=== PATIENT | male | born 1980 ===

== ENCOUNTER 2020-05-15 17:45 | Emergency (ER) | payer SELFPAY ==
--- NOTE | 2020-05-15 18:12 | EDM.PDOC ---
ED HPI GENERAL MEDICAL PROBLEM - General Chief Complaint: Trauma Stated Complaint: TRAUMA Time Seen by Provider: 05/15/20 17:45 Source of Information: Reports: Patient, EMS, Hand Stripper History Limitations: Reports: No Limitations - History of Present Illness INITIAL COMMENTS - FREE TEXT/NARRATIVE: Patient presents via ambulance after falling 12-15 feet from a [employer] roof where he was working. His co-worker is here who saw the incident and is interpreting for him. He says patient landed on knees and forearms and rolled to side on impact. He was curled up in a crouching position when he landed. He did not have LOC. Patient says he has some pain in lower mid chest that is worse with inspiration. He denies pain in neck, abdomen or extremities. He denies any vision change. He doesn't take any medications. - Related Data Allergies Allergy/AdvReac Type Severity Reaction Status Date / Time Penicillins Allergy dry throat Verified 05/15/20 18:32 Home Meds: Home Meds . [No Known Home Meds] 05/15/20 [History] Review of Systems - Review of Systems Review Of Systems: See Below Constitutional: Denies: Chills, Fever, Weakness Eyes: Denies: Blindness, Blurred Vision, Vision Change Ears: Denies: Pain, Bloody Discharge, Clear Discharge, Purulent Discharge, Serosanguinous Discharge Nose: Denies: Epistaxis, Pain, Bloody Discharge, Clear Discharge, Purulent Discharge, Serosanguinous Discharge Mouth/Throat: Denies: Bleeding, Lip Swelling, Tongue Swelling, Throat Swelling, Hoarse Voice, Muffled Voice, Difficulty Swallowing, Painful Swallowing Respiratory: Denies: Shortness of Breath, Wheezing, Cough, Hemoptysis Cardiovascular: Reports: Chest Pain (see HPI). Denies: Syncope GI/Abdominal: Denies: Abdominal Pain, Diarrhea, Nausea, Vomiting Musculoskeletal: Reports: Back Pain. Denies: Neck Pain, Shoulder Pain, Arm Pain, Hand Pain, Leg Pain, Foot Pain Skin: Denies: Cyanosis, Jaundice, Mottled, Pallor, Diaphoresis Neurological: Denies: Confusion, Dizziness, Headache, Seizure, Syncope, Trouble Speaking Psychiatric: Denies: Confusion, Anxiety, Agitation ED EXAM, GENERAL - Physical Exam Exam: See Below Exam Limited By: No Limitations (used aerial photograph interpreter) General Appearance: Alert, WD/WN, No Apparent Distress Eye Exam: Bilateral Eye: EOMI, Normal Inspection, PERRL Ears: Normal External Exam, Normal Canal, Hearing Grossly Normal, Normal TMs Nose: Normal Inspection, No Blood Throat/Mouth: Normal Inspection, Normal Lips, Normal Voice, No Airway Compromise Head: Atraumatic, Normocephalic Neck: Normal Inspection, Supple, Non-Tender, Full Range of Motion (examined carefully after removal of collar). No: Tender Lateral, Tender Midline Respiratory/Chest: No Respiratory Distress, Lungs Clear, Normal Breath Sounds, No Accessory Muscle Use, Other (tender in lower sternum). No: Crackles, Rales, Rhonchi, Wheezing, Stridor Cardiovascular: Regular Rate, Rhythm, No Edema, No Gallop, No Murmur Peripheral Pulses: 2+: Carotid (L), Carotid (R), Radial (L), Radial (R), Posterior Tibial (L), Posterior Tibial (R) GI/Abdominal: Normal Bowel Sounds, Soft, Non-Tender, No Organomegaly, No Distention, No Abnormal Bruit, No Mass, Pelvis Stable Back Exam: Paraspinal Tenderness (low lumbar), Vertebral Tenderness (low lumbar). No: CVA Tenderness (L), CVA Tenderness (R) Extremities: Normal Inspection, Normal Range of Motion, Non-Tender, No Pedal Edema, Other (thorough exam of bilat UE/LE reveals no pain or limitations. Distal CMS intact.) Neurological: Alert, Oriented, CN II-XII Intact, Normal Cognition, No Motor/Sensory Deficits Psychiatric: Normal Affect, Normal Mood Skin Exam: Warm, Dry, Intact, Normal Color, No Rash Course - Vital Signs Last Recorded V/S: Last Vital Signs Temp 97.1 F 05/15/20 18:35 Pulse 78 05/15/20 18:49 Resp 22 H 05/15/20 18:49 BP 146/66 H 05/15/20 18:49 Pulse Ox 97 05/15/20 18:49 - Orders/Labs/Meds Orders: Active Orders 24 hr Category Date Time Status Sodium Chloride 0.9% [Normal Saline] 50 ml Med 05/15/20 18:45 Active IV ASDIRECTED Medication Orders Sodium Chloride (Normal Saline) 50 mls @ 200 mls/hr IV ASDIRECTED ÁNGEL Last Admin: 05/15/20 18:37 Dose: 200 mls/hr Documented by: JUSTIN Meds: Medications Generic Name Dose Route Start Last Admin Trade Name Stefan PRN Reason Stop Dose Admin Sodium Chloride 50 mls @ 200 mls/hr 05/15/20 18:45 05/15/20 18:37 Normal Saline IV 200 mls/hr ASDIRECTED ÁNGEL Administration Discontinued Medications Generic Name Dose Route Start Last Admin Trade Name Stefan PRN Reason Stop Dose Admin Iopamidol 100 ml 05/15/20 18:35 05/15/20 18:37 Isovue-370 (76%) IV 05/15/20 18:36 100 ml ONETIME ONE Administration - Re-Assessments/Exams Free Text/Narrative Re-Assessment/Exam: 05/15/20 20:01 We cleared collar early. After CT results showing no pathology at areas of pain carefully moved off backboard. When we sat patient up in bed at 45 degree angle he developed significant pain in back. We laid him back down and re-examined, findings pain was at upper lumbar spine. This correlates with CT evidence of slight wedging and cortical irregularity of T12/L1 vertebral bodies. MRI is needed. I called and discussed case with Dr. Topete at [facility] who accepted for transfer. Patient was placed back on board and is stable and fairly comfortable. Distal CMS intact. Departure - Departure Time of Disposition: 19:59 Disposition: DC/Tfer to Acute Hospital 02 Condition: Good Clinical Impression: Lumbar pain Fall from roof Qualifiers: Encounter type: initial encounter Qualified Code(s): W13.2XXA - Fall from, out of or through roof, initial encounter - Discharge Information Forms: ED Department Discharge Sepsis Event Note (ED) - Focused Exam Vital Signs: Vital Signs Temp Pulse Resp BP Pulse Ox 05/15/20 18:49 78 22 H 146/66 H 97 05/15/20 18:35 97.1 F 85 20 152/77 H 97 05/15/20 18:00 97.1 F 73 18 139/82 96 - My Orders Last 24 Hours: My Active Orders 05/15/20 18:45 Sodium Chloride 0.9% [Normal Saline] 50 ml IV ASDIRECTED - Assessment/Plan Last 24 Hours: My Active Orders 05/15/20 18:45 Sodium Chloride 0.9% [Normal Saline] 50 ml IV ASDIRECTED
[2020-05-15] MEDS: Iopamidol 755 Mg/ML 100 ML Bottle IV ONE (18:37)
[2020-05-15] MEDS: Sodium Chloride 0.9% 50 ML IV SCH (18:37)
--- NOTE | 2020-05-15 18:57 | CT ---
[id number] CT/CT Chest W IV EXAM: CHEST AND ABDOMEN CT WITH CONTRAST CHEST CT WITH CONTRAST INDICATION: TRAUMA - FALL FROM ROOF - 12-15 FEET. PAIN IN LOW-MID COMPARISON: None. DISCUSSION: The lungs are clear. No pleural or pericardial effusion. Normal heart size. No adenopathy. Scattered degenerative changes in the spine. No fracture or other osseous abnormality is identified. The imaged upper abdomen is unremarkable. IMPRESSION: 1. No evidence of acute trauma within the chest. Carlos Allen MD 05/15/20 [id number] Thank you for allowing us to participate in the care of your patient.
--- NOTE | 2020-05-15 19:11 | CT ---
[id number] CT/CT Abdomen Pelvis W IV EXAM: ABDOMEN AND PELVIS CT WITH CONTRAST INDICATION: TRAUMA - FALL FROM ROOF - 12-15 FEET. PAIN IN LOW-MID COMPARISON: None. DISCUSSION: There is slight ventral height loss at T12, L1 and L2 and mild cortical irregularity involving the anterior cortex of T12 and L1. These changes are nonspecific, but could be seen with mild age-indeterminate compression fractures. Consider unenhanced MRI there is pain at the lumbosacral junction. Mild disc degeneration at the L4-L5 level. Small left renal cyst. Possible fatty liver. No evidence of solid organ injury. The gallbladder, spleen, pancreas, adrenal glands, right kidney and bowel are normal in appearance. No adenopathy, free air free fluid. IMPRESSION: 1. Slight wedging of the T12, L1 and L2 vertebral bodies anteriorly. These changes could represent congenital variants or minimal age-indeterminate compression fractures with no definite findings of acute fracture. Consider lumbar spine MRI without contrast if there is pain at the thoracolumbar junction. Carlos Allen MD 05/15/20 [id number] Thank you for allowing us to participate in the care of your patient.
== END 2020-05-15 20:25 ==
LOC: KA.ED 17:45
DX: M54.5 Low back pain (principal); Z88.0 Allergy status to penicillin; W13.2XXA Fall from, out of or through roof, initial encounter
CPT/HCPCS: 71260; 74177; 99284; 99285-25; J7050; Q9967